=== PATIENT | female | born 1975 | race African-American/Black ===

== ENCOUNTER 2016-12-19 21:36 | Emergency (ER) | payer OTHER ==
[2015-03-03 09:13] VITALS: BMI 26.5
[~2016-12-19 21:36] MED LIST: ELAVIL75 MG PO; MOBIC7.5 MG PO; PEPCID20 MG PO
== END 2016-12-19 22:08 | disposition home or self-care (01) ==
LOC: D.ER 21:36
DX: M54.5 Low back pain (principal); F41.9 Anxiety disorder, unspecified; F32.9 Major depressive disorder, single episode, unspecified

== ENCOUNTER 2017-04-17 11:47 | Emergency (ER) | payer OTHER ==
[2015-03-03 09:13] VITALS: BMI 26.5
[2017-04-17 12:36] LABS: BASOPHILS 0.4 % (0-2); EOSINOPHILS 3.1 % (0-7); HEMATOCRIT 32.1 % (36.0-48.0); HEMOGLOBIN 10.7 g/dL (12-16); IMMATURE GRANULOCYTES 0.4 % (0-5); LYMPHOCYTES 38.2 % (15-50); MCH 23.8 pg (26.0-34.0); MCHC 33.3 g/dL (31.0-37.0); MCV 71.5 fL (80.0-100.0); MEAN PLATELET VOLUME 9.4 fL (7.4-10.4); MONOCYTES 5.8 % (2-11); NEUTROPHILS 52.1 % (40-80); PLATELET COUNT 295 10x3/uL (130-400); RBC 4.49 10x6/uL (4.00-5.40); RDW 18.9 % (11.5-14.5); WBC 7.7 10x3/uL (4.8-10.8)
[2017-04-17 13:04] LABS: ALBUMIN 3.1 g/dL (3.4-5.0); ALKALINE PHOSPHATASE 54 U/L (46-116); ALT (SGPT) 17 U/L (10-68); BILIRUBIN - TOTAL 0.26 mg/dL (0.2-1.3); CALC OSMOLALITY 275 mosm/kg (275-300); CALCIUM 8.9 mg/dL (8.5-10.1); CHLORIDE - SERUM 107 mmol/L (98-107); CREATININE - SERUM 0.8 mg/dL (0.6-1.3); GLUCOSE 100 mg/dL (74-106); POTASSIUM - SERUM 3.6 mmol/L (3.5-5.1); PROTEIN - SERUM 7.1 g/dL (6.4-8.2); SODIUM 140 mmol/L (136-145); UREA NITROGEN 5 mg/dL (7-18); eGFR NON AFRICAN AMERICAN 83 mL/min (90-120)
[2017-04-17 13:12] LABS: CKMB 0.1 U/L (0.0-3.6); CREATINE KINASE 62 UL (21-215)
[2017-04-17 13:15] LABS: TROPONIN-I < 0.017 ng/mL (0.000-0.060)
== END 2017-04-17 13:47 | disposition home or self-care (01) ==
LOC: D.ER 11:47
PROVIDERS: Emergency Medicine
DX: R07.9 Chest pain, unspecified (principal); K21.9 Gastro-esophageal reflux disease without esophagitis; K21.0 Gastro-esophageal reflux disease with esophagitis

== ENCOUNTER 2017-07-29 21:19 | Emergency (ER) | payer OTHER ==
[2015-03-03 09:13] VITALS: BMI 26.5
== END 2017-07-30 01:38 | disposition home or self-care (01) ==
LOC: D.ER 21:19
DX: R07.89 Other chest pain (principal); F17.200 Nicotine dependence, unspecified, uncomplicated; R00.0 Tachycardia, unspecified

== ENCOUNTER 2017-11-02 20:30 | Emergency (ER) | payer OTHER ==
[2015-03-03 09:13] VITALS: BMI 26.5
== END 2017-11-02 21:21 | disposition home or self-care (01) ==
LOC: D.ER 20:30
DX: G43.909 Migraine, unspecified, not intractable, without status migrainosus (principal)

== ENCOUNTER 2017-12-02 14:46 | Emergency (ER) | payer OTHER ==
[2015-03-03 09:13] VITALS: BMI 26.5
== END 2017-12-02 16:22 | disposition home or self-care (01) ==
LOC: D.ER 14:46
DX: K04.7 Periapical abscess without sinus (principal); K08.89 Other specified disorders of teeth and supporting structures

== ENCOUNTER 2018-01-06 15:18 | Emergency (ER) | payer OTHER ==
[2015-03-03 09:13] VITALS: BMI 26.5
[2018-01-06 16:17] LABS: BASOPHILS 0.2 % (0-2); EOSINOPHILS 4.5 % (0-7); HEMATOCRIT 33.8 % (36.0-48.0); HEMOGLOBIN 11.3 g/dL (12-16); IMMATURE GRANULOCYTES 0.2 % (0-5); LYMPHOCYTES 42.1 % (15-50); MCH 24.8 pg (26.0-34.0); MCHC 33.4 g/dL (31.0-37.0); MCV 74.3 fL (80.0-100.0); MONOCYTES 5.6 % (2-11); NEUTROPHILS 47.4 % (40-80); PLATELET COUNT 286 10x3/uL (130-400); RBC 4.55 10x6/uL (4.00-5.40); RDW 17.4 % (11.5-14.5); WBC 8.8 10x3/uL (4.8-10.8)
[2018-01-06 16:53] LABS: ALBUMIN 3.3 g/dL (3.4-5.0); ALKALINE PHOSPHATASE 63 U/L (46-116); ALT (SGPT) 15 U/L (10-68); BILIRUBIN - TOTAL 0.35 mg/dL (0.2-1.3); CALC OSMOLALITY 275 mosm/kg (275-300); CALCIUM 9.1 mg/dL (8.5-10.1); CARBON DIOXIDE 25.2 mmol/L (21.0-32.0); CHLORIDE - SERUM 104 mmol/L (98-107); CREATININE - SERUM 0.8 mg/dL (0.6-1.3); GLUCOSE 111 mg/dL (74-106); PROTEIN - SERUM 7.7 g/dL (6.4-8.2); SODIUM 139 mmol/L (136-145); UREA NITROGEN 3 mg/dL (7-18); eGFR NON AFRICAN AMERICAN 82 mL/min (90-120)
[2018-01-06 16:53] LABS: APPEARANCE CLEAR (CLEAR); BILIRUBIN NEGATIVE (NEGATIVE); COLOR YELLOW (YELLOW); GLUCOSE NEGATIVE (NEGATIVE); KETONE NEGATIVE (NEGATIVE); NITRITE NEGATIVE (NEGATIVE); PROTEIN NEGATIVE (NEGATIVE); UROBILINOGEN NORMAL (NORMAL)
[2018-01-06 16:55] LABS: BACTERIA MODERATE /hpf (NONE SEEN); RED CELLS - URINE 0-5 /hpf (0-5); WHITE CELLS - URINE 0-5 /hpf (0-5)
[2018-01-06 17:05] LABS: POTASSIUM - SERUM 2.5 mmol/L (3.5-5.1)
[2018-01-06 17:11] LABS: HCG SERUM NEGATIVE (NEGATIVE)
== END 2018-01-06 19:52 | disposition home or self-care (01) ==
LOC: D.ER 15:18
PROVIDERS: Emergency Medicine
DX: K59.00 Constipation, unspecified (principal); E87.6 Hypokalemia; N76.0 Acute vaginitis; B96.89 Other specified bacterial agents as the cause of diseases classified elsewhere

== ENCOUNTER 2018-02-02 08:36 | Observation (INO) | payer OTHER ==
[~2018-02-02] VITALS: Ht 175.3 cm; Wt 100.7 kg
--- NOTE | ~2018-02-02 | CN ---
PATIENT NAME:MARCO A GEORGE MEDICAL RECORD: [id number] : 71 LOCATION:[facility] D.2122 ADMIT DATE: 02/02/18 ACCOUNT: [id number] CONSULTING PHYSICIAN: LEATHA ANTOINE MD REFERRING PHYSICIAN: JEFFERY LORA MD DATE OF CONSULTATION: 02/03/2018 HISTORY OF PRESENT ILLNESS: A 42-year-old female with no known history of coronary artery disease, she has a strong family history of coronary artery disease, history of hypertension, migraine, has been having intermittent chest pain, both typical and atypical features. Extensive GI workup including gallbladder ultrasound, upper and lower endoscopy, no etiology so far. With strong family history this is somewhat concerning her. We are asked to see her concerning her cardiovascular status. PAST MEDICAL HISTORY: Includes history of migraines. ALLERGIES: None known. MEDICATIONS: Typically include Mobic 7.5 every day, diazepam 5 mg p.o. t.i.d., amitriptyline 75 q.h.s. SOCIAL HISTORY: Lives in [place], nonsmoker. No set exercise program. REVIEW OF SYSTEMS: The patient reports easy bruising but reports no swollen glands. The patient reports no fever, no night sweats, no significant weight gain, no significant weight loss. No significant exercise tolerance. The patient reports no dry eyes, no irritation, no vision change. Patient reports no difficulty hearing and no ear pain. Patient reports no frequent nose bleeds or nose and sinus problems. Patient reports on arm pain on exertion. No shortness of breath while lying down. No history of heart murmur. Patient reports no cough, no wheezing or coughing up blood. Patient reports no abdominal pain, no vomiting. Normal appetite. No diarrhea and not vomiting blood. No nausea and no constipation. Patient reports no incontinence. No difficulty urinating. No hematuria. No increased frequency. Patient reports no muscle aches. No weakness, no arthralgias, no back pain. No swelling of the extremities. Patient reports no abnormal mole, no jaundice, no rashes. Reports no loss of consciousness. No weakness and no numbness. No seizures, dizziness, or headaches. The patient reports no depression, no sleep disturbance, feeling safe in a relationship and no alcohol abuse. Patient reports on fatigue. Reports no runny nose or sinus pressure. No itching, no hives, and no frequent sneezing. PHYSICAL EXAMINATION: GENERAL: Pleasant female in no acute distress, alert and oriented. VITAL SIGNS: Blood pressure 122/56, pulse 90 and regular. HEENT: Normocephalic, atraumatic. NECK: No JVD or bruit. HEART: Regular. LUNGS: Chan clear. ABDOMEN: Soft, nontender. EXTREMITIES: Pulse 2+ with no edema. NEUROLOGIC: Grossly intact. DIAGNOSTIC DATA: ECG is without acute change. CONSULT REPORT [id number] MARCO A GEORGE IMPRESSION: Chest pain, hypokalemia. Historically given clinical situation, I suspect best be served by definitive diagnosis and we will schedule diagnostic angiography for that purpose. TRANSINT:[id number] Voice Confirmation ID: [id number] DOCUMENT ID: [id number] LEATHA ANTOINE MD at 1155 CC: [id number] DICTATION DATE: 02/03/18 0852 EDUCATION INSTRUCTOR: 02/03/18 1127 DIS IN 02/03/18 [id number] [place] [address]
--- NOTE | ~2018-02-02 | HEMODYNAMI ---
PATIENT:MARCO A GEORGE MEDICAL RECORD: [id number] : 71 [facility] [id number] ADMISSION DATE: 02/02/18 Generatedon:02/03/201814:31 Patient name: MARCO A GEORGE Patient #: [id number] SSN: DO B: 1975 Date of study: 02/03/2018 Page: Of Hemodynamic Procedure Report Patient Data Patient Demographics Procedure consent was obtained First Name: MARCO A Gender: Female Last Name: ARIEL : 1975 [facility] Initial: L Age: 42 year(s) Patient #: [id number] Race: Black Additional ID: [id number] Contact details [address]: [address] [place] [address] State: [place] City: [place] Zip code: [address] Admission Admission Data Admission Date: 02/02/2018 Admission Time: 14:22 Room #: D.2122 Lab Results Lab Result Date: 02/03/2018 Lab Result Time: 0:00 Biochemistry Name Units Result Min Max BUN mg/dl 5 -*(----)-- 7 18 Creatinine mg/dl 0.8 --(-*--)-- 0.6 1.3 CBC Name Units Result Min Max Hemoglobin g/dl 10.1 *-(----)-- 13.5 17.5 Procedure Procedure Types Cath Procedure Diagnostic Procedure [facility] w/Coronaries Sedation Charges Moderate Sedation up to 15 minutes Procedure Description Procedure Date Procedure Date: 02/03/2018 Procedure Start Time: 14:09 Procedure End Time: 14:28 Procedure Staff Name Function Benji Newsome MD Performing Physician Lydia Christina RT Monitor Marquise Urban RN Nurse Shannno Aldana RT Scrub Procedure Data Cath Procedure Fluoroscopy Diagnostic fluoroscopy Total fluoroscopy Time: 7.7 time: 7.7 min min Diagnostic fluoroscopy Total fluoroscopy dose: 714 dose: 714 mGy mGy Contrast Material Contrast Material Type Amount (ml) Isovue 300 63 Entry Location Entry Primary Successful Side Size Upsize Upsize Entry Closure Harrison ccessful Closure Location (Fr) 1 (Fr) 2 (Fr) Remarks Device Remarks Radial Right 6 Fr Mechanical artery Short Compression Estimated blood loss: 10 ml Diagnostic catheters Device Type Used For End Catheter Placement DIAGNOSTIC [place] 110cm 5 Procedure Fr catheter ([id number]) DIAGNOSTIC AR 1 MOD 5Fr Procedure catheter ([id number]) DIAGNOSTIC JL 3.5 5Fr Procedure catheter ([id number]) Procedure Complications No complications Procedure Medications Medication Administration Route Dosage Oxygen etCO2 Nasal cannula 2 l/min Heparin Flush Bag added to field 2 bags (1000units/500ml NS) 0.9% NaCl I.V. 100 ml/hr Radial Cocktail added to field 1 syringe (Verapomil 2mg/Nitro 400mcg/Heparin 1500units) Fentanyl I.V. 50 mcg Versed I.V. 1 mg Fentanyl I.V. 50 mcg Versed I.V. 1 mg Fentanyl I.V. 50 mcg Radial Cocktail I.A. 1 syringe (Verapomil 2mg/Nitro 400mcg/Heparin 1500units) Fentanyl I.V. 50 mcg Versed I.V. 1 mg Versed I.V. 1 mg Hemodynamics Rest HGB: 10.1 (g/dl) Heart Rate: 89 (bpm) Pressure Samples Time Site Value (mmHg) Purpose Heart Use Rate(bpm) 14:23 LV 120/3,20 Snapshot 89 14:24 AO 116/77(94) Pullback 88 14:24 LV 132/10,35 Pullback 88 Gradients Valve Time Site 1 Site 2 Mean SEP/DFP Peak To Heart Use (mmHg) (sec/min) Peak Rate (mmHg) (bpm) Aortic 14:24 LV AO 11 23 16 88 132/10,35 116/77(94) Calculations Valve P-P Mean Valve Index Valve Source Name Gradient Area Flow (cm2) Aortic 16 11 16 11 Snapshots Pre Cath Intra NCS Post Cath Vital Signs Time Heart Resp SPO2 etCO2 NIBP Rhythm Pain Sedation Rate (ipm) (%) (mmHg) (mmHg) Status Level (bpm) 13:58:31 96 16 100 18.8 112/81(97) NSR 0 (11) 10(A) , No pain 14:02:39 86 16 96 27.9 117/76(92) NSR 0 (11) 10(A) , No pain 14:06:49 86 17 96 31.6 122/73(94) NSR 0 (11) 9(A) , No pain 14:10:57 89 17 99 37.7 123/78(98) NSR 0 (11) 9(A) , No pain 14:15:07 92 17 97 36.2 114/67(93) NSR 0 (11) 9(A) , No pain 14:19:15 88 17 94 35.4 115/71(93) NSR 0 (11) 9(A) , No pain 14:23:25 87 16 94 26.3 120/72(83) NSR 0 (11) 9(A) , No pain 14:27:39 89 16 96 33.1 106/68(91) NSR 0 (11) 9(A) , No pain Medications Time Medication Route Dose Verified Delivered Reason Notes Effectiveness by by 13:56:59 Oxygen etCO2 2 l/min Benji Camarillo Per Nasal [facility] Mehran Urban RN physician cannula 13:57:06 Heparin Flush added 2 bags Benji Camarillo used for Bag to [facility] Mehran Urban watershed program manager (1000units/500ml field TEJEDA NS) 13:57:16 0.9% NaCl I.V. 100 Benji Camarillo Per ml/hr [facility] Mehran Urban RN physician 13:57:25 Radial Cocktail added 1 Benji Camarillo used for (Verapomil to syringe [facility] Mehran Urban watershed program manager 2mg/Nitro field TEJEDA 400mcg/Heparin 1500units) 14:03:40 Fentanyl I.V. 50 mcg Benji Camarillo for sedation [facility] Mehran Urban RN, MD 14:03:47 Versed I.V. 1 mg Benji Camarillo for sedation [facility] Mehran Urban RN, MD 14:06:18 Fentanyl I.V. 50 mcg Benji Maciasy for sedation [facility] Mehran Urban RN, MD 14:06:22 Versed I.V. 1 mg Benji Camarillo for sedation [facility] Mehran Urban RN, MD 14:09:19 Fentanyl I.V. 50 mcg Benji Maciasy for sedation [facility] Mehran Urban RN, MD 14:10:16 Radial Cocktail I.A. 1 Benji Leblanc for (Verapomil syringe [facility] vasodilation 2mg/Robin TEJEDA MD 400mcg/Heparin 1500units) 14:11:36 Fentanyl I.V. 50 mcg Benji Maciasy for sedation [facility] Mehran Urban RN, MD 14:15:00 Versed I.V. 1 mg Benji Camarillo for sedation [facility] Mehran Urban RN, MD 14:18:22 Versed I.V. 1 mg Benji Camarillo for sedation [facility] Mehran Urban RN, MD Procedure Log Time Note 13:31:25 Shannon Aldana RT(R) sent for patient. Start room use. 13:45:39 Lab Result : BUN 5 mg/dl 13:45:39 Lab Result : Hemoglobin 10.1 g/dl 13:45:39 Lab Result : Creatinine 0.8 mg/dl 13:46:21 Diagnostic Cath status Elective 13:46:26 Time tracking: Regular hours 13:46:33 Plan of Care:Hemodynamics will remain stable., Cardiac rhythm will remain stable., Comfort level will be maintained., Respiratory function will remain adequate., Patient/ family verbilizes understanding of procedure., Procedure tolerated without complication., Recovers from procedure without complications.. 13:50:32 Patient received from Med II to [facility] 2 Alert and oriented. Tansferred to table in Supine position. 13:50:33 Warm blankets applied, and lindy hugger turned on for patient comfort. 13:50:40 Correct patient and procedure confirmed by team. 13:50:49 Signed procedure consent form obtained from patient. 13:51:14 H&P Date Dictated: 02/02/2018 Within 30 days and on chart., H&P Addendum completed by physician on day of procedure. (MUST COMPLETE FOR ALL OUTPATIENTS). 13:51:18 Pre-procedure instructions explained to patient. 13:51:22 Family in waiting room. 13:51:24 Patient NPO since Midnight. 13:52:12 Is the patient allergic to Iodine/contrast media? No. 13:52:16 Was the patient premedicated? Yes 13:56:59 Oxygen 2 l/min etCO2 Nasal cannula was administered by Marquise Urban RN; Per physician; 13:57:06 Heparin Flush Bag (1000units/500ml NS) 2 bags added to field was administered by Marquise Urban RN; used for procedure; 13:57:16 0.9% NaCl 100 ml/hr I.V. was administered by Marquise Urban RN; Per physician; 13:57:25 Radial Cocktail (Verapomil 2mg/Nitro 400mcg/Heparin 1500units) 1 syringe added to field was administered by Marquise Urban RN; used for procedure; 13:57:32 Vital chart was started 13:58:26 Baseline sample Acquired. 13:58:27 ECG and BP/O2 sat monitors applied to patient. 13:58:36 Rhythm: sinus rhythm 13:58:38 Full Disclosure recording started 13:58:42 Is patient on blood thinner?No 13:58:44 Patient diabetic? No. 13:58:46 Patient not . Patient has had tubal. 13:58:50 Previous problem with sedation/anesthesia? No ? 13:58:52 Snore? Yes 13:58:53 Sleep apnea? No 13:58:54 Deviated septum? No 13:58:54 Opens mouth fully? Yes 13:58:55 Sticks out tongue? Yes 13:58:59 Airway obstruction? No ? 13:59:02 Dentures? No ? 13:59:05 Pre procedure: right dorsailis pedis pulse 1+ Palpable, but thready & weak; easily obliterated 13:59:07 Modified Pepe's test Ulnar < 7 seconds 13:59:09 Patient pain scale 0/10 ?. 13:59:15 IV patent on arrival in left hand with 0.9% NaCl at O. 13:59:17 Lab results completed and on chart. 13:59:22 Right Radial & Right Groin area was prepped with chlora-prep and draped in sterile fashion 13:59:23 Alarms reviewed by R. N. 13:59:23 Sharps counted by scrub and verified by R.N. 14:03:32 Physician paged 14:03:32 Physician arrived 14:03:33 --------ALL STOP TIME OUT------ 14:03:34 Final Timeout: patient, procedure, and site verified with staff and physician. All members of the team are in agreement. 14:03:37 Right Radial & Right Groin site verified by team. 14:03:40 Fentanyl 50 mcg I.V. was administered by Marquise Urban RN; for sedation; 14:03:41 Physical assessment completed. ASA score P 2 - A patient with mild systemic disease as per Benji Newsome MD. 14:03:45 Sedation plan: IV Moderate Sedation Medication:Versed, Fentanyl 14:03:47 Versed 1 mg I.V. was administered by Marquise Urban RN; for sedation; 14:03:52 Use device set Femoral Dx 14:04:44 ACIST Syringe (33576) opened to sterile field. 14:04:45 Bag Decanter () opened to sterile field. 14:04:47 Medline Cath Pack ([id number]) opened to sterile field. 14:04:50 DIAGNOSTIC WIRE .035 260cm J wire (129770) opened to sterile field. 14:04:51 ACIST Hand Control (32495) opened to sterile field. 14:04:52 ACIST Manifold (70754) opened to sterile field. 14:05:09 SHEATH 6Fr Prelude Radial ([id number]) opened to sterile field. 14:06:06 Zero performed for pressure channel P1 14:06:18 Fentanyl 50 mcg I.V. was administered by Marquise Urban RN; for sedation; 14:06:22 Versed 1 mg I.V. was administered by Marquise Urban RN; for sedation; 14:09:16 Procedure started. 14:09:19 Fentanyl 50 mcg I.V. was administered by Marquise Urban RN; for sedation; 14:09:28 Local anesthetic to right radial artery with Lidocaine 2% by Benji Newsome MD.INITIAL ACCESS ONLY 14:10:16 Radial Cocktail (Verapomil 2mg/Nitro 400mcg/Heparin 1500units) 1 syringe I.A. was administered by Benji Newsome MD; for vasodilation; 14:10:50 A 6 Fr Short sheath was inserted into the Right Radial artery 14:11:36 Fentanyl 50 mcg I.V. was administered by Marquise Urban RN; for sedation; 14:11:57 A DIAGNOSTIC [place] 110cm 5 Fr catheter (397406) was advanced over the wire and used for Procedure. 14:13:57 GLIDE WIRE ANGLE 260cm ([id number]) opened to sterile field. 14:14:13 TORQUE DEVICE PLASTIC .038 ( TD01) opened to sterile field. 14:14:14 MAGIC TORQUE 180cm 0.035 wire ([id number]) opened to sterile field. 14:15:00 Versed 1 mg I.V. was administered by Marquise Urban RN; for sedation; 14:18:18 unable to get access with tiger. cath exchanged for A R1 14:18:22 Versed 1 mg I.V. was administered by Marquise Urban RN; for sedation; 14:18:34 A DIAGNOSTIC AR 1 MOD 5Fr catheter (655266S) was advanced over the wire and used for Procedure. 14:19:11 RCA angiography performed. 14:22:04 A DIAGNOSTIC JL 3.5 5Fr catheter ([id number]) was advanced over the wire and used for Procedure. 14:23:12 cath removed unable to access lesion 14:23:13 GUIDE 6FR EBU 3.5 catheter ([id number]) opened to sterile field. 14:24:34 pressures recorded 14:25:34 LCA angiography performed. 14:25:40 Catheter removed. 14:25:57 TR BAND Large ([id number]) opened to sterile field. 14:26:25 Sheath removed intact; hemostasis achieved with Mechanical Compression to the Right Radial artery. 14:26:28 Procedure ended.(Physican Out) 14:26:43 Fluoroscopy time 07.70 minutes. 14:26:48 Flurop Dose total: 714 14:26:48 Fluoroscopy dose: 714 mGy 14:26:58 Contrast amount:Isovue 300 63ml. 14:27:00 Sharps counted by scrub and verified by R.N. 14:27:03 TR band inflated with 14cc of air. 14:27:13 Insertion/operative site no bleeding no hematoma. 14:27:14 Post Procedure Pulses reassessed and unchanged 14:27:18 Post-procedure physical assessment completed. ASA score P 2 - A patient with mild systemic disease as per Benji Newsome MD. 14:27:22 Post procedure rhythm: unchanged. 14:27:27 Estimated blood loss: 10 ml 14:27:33 Post procedure instruction explained to patient.Patient verbalizes understanding. 14:27:42 Procedure type changed to Cath procedure, Diagnostic procedure, LHC, LHC w/Coronaries, Sedation Charges, Moderate Sedation up to 15 minutes 14:27:44 Procedure and supply charges have been captured, reviewed, submitted and are correct. 14:28:12 Procedure Complication : No complications 14:28:14 Vital chart was stopped 14:28:15 See physician's report for complete and final results. 14:28:19 Report given to [facility]. 14:28:23 Patient transfered to [facility] with Bed. 14:28:26 Procedure ended. 14:28:26 Full Disclosure recording stopped 14:28:56 End room use (Document Last) Device Usage Item Name Manufacture Quantity Catalog Number Hospital Part Current M inimal Lot# / Charge Number Stock Stock Serial# Code ACIST Syringe Acist 1 68271 591475 828979 181737 2 0 (25489) Medical Systems [employer] Bag Decanter Microtek 1 029821 96885 137324 5 () [employer] Inc. Medline Cath Cardinal 1 [id number] 336811 68795 021292 5 [employer] ([id number]) DIAGNOSTIC WIRE St Vasyl 1 191811 644555 632482 737680 3 0 .035 260cm J wire (483240) ACIST Hand Acist 1 80859 781430 147717 882014 5 Control (54855) Medical Systems Inc ACIST Manifold Acist 1 27332 148847 270311 622318 5 (76896) Medical Systems Inc SHEATH 6Fr Merit 1 [id number] 148483 530681 664770 5 Prelude Radial Medical ([id number]) DIAGNOSTIC Terumo 1 405013 791444 019134 489182 5 [place] 110cm 5 Fr catheter (248905) GLIDE WIRE Terumo 1 [id number] 208294 335357 810216 5 ANGLE 260cm ([id number]) TORQUE DEVICE [place] 1 TD01 093140 130241 032477 5 PLASTIC .038 ( Scientific TD01) MAGIC TORQUE [place] 1 [id number] 965709 692513 591647 1 180cm 0.035 Scientific wire ([id number]) DIAGNOSTIC [place] 1 Cardinal 1 [id number] 215524 019397 962693 1 5 MOD 5Fr Health catheter (998264I) DIAGNOSTIC JL Cardinal 1 [id number] 767389 693140 069176 5 3.5 5Fr Health catheter (276770G) GUIDE 6FR EBU Medtronic 1 [id number] 856422 77243 754807 3 3.5 catheter ([id number]) TR BAND Large Terumo 1 [id number] 388395 389301 661685 4 0 ([id number]) Signature Audit Ethel Stage Time Signature Unsigned Intra-Procedure 02/03/2018 Lydia Christina 2:31:26 PM RT(R) Signatures Monitor : Lydia Christina Signature : RT Date : Time : [id number] [place] [address]
--- NOTE | ~2018-02-02 | OP ---
PATIENT NAME: MARCO A GEORGE MEDICAL RECORD: [id number] :71 LOCATION:D. D.2122 ADMISSION DATE:02/02/18 SURGEON: LEATHA ANTOINE MD DATE OF OPERATION: 02/03/2018 PROCEDURE: Left heart catheterization secondary right radial approach. CATHETERS: A [place] sheath, [place] catheter, AR catheter. FINDINGS: Left ventriculograpy not performed. LV catheterization shows a normal left ventricular end-diastolic pressure. No pressure gradient across the aortic valve. CORONARY ANATOMY: LEFT MAIN: Left main is free of disease. LAD: LAD is free of disease in the diagonal system. CIRCUMFLEX: Free of disease in the marginal system. RIGHT CORONARY ARTERY: Dominant artery, gives rise to PDA, free of disease. IMPRESSION: No gradient across the aortic valve. Normal LV pressures. Normal coronary anatomy. TRANSINT:[id number] Voice Confirmation ID: [id number] DOCUMENT ID: [id number] LEATHA ANTOINE MD at 1155 CC: [id number] DICTATION DATE: 02/03/18 1433 TUGGER OPERATOR: 02/03/18 1535 DIS IN 02/03/18 [facility] [address] [place] [address]
[2018-02-02 09:18] LABS: BASOPHILS 0.2 % (0-2); EOSINOPHILS 5.1 % (0-7); HEMATOCRIT 32.7 % (36.0-48.0); IMMATURE GRANULOCYTES 0.3 % (0-5); MCH 24.8 pg (26.0-34.0); MCHC 33.6 g/dL (31.0-37.0); MCV 73.8 fL (80.0-100.0); MEAN PLATELET VOLUME 9.6 fL (7.4-10.4); MONOCYTES 3.1 % (2-11); NEUTROPHILS 47.3 % (40-80); PLATELET COUNT 314 10x3/uL (130-400); RBC 4.43 10x6/uL (4.00-5.40); RDW 17.4 % (11.5-14.5)
[2018-02-02 09:43] LABS: ALBUMIN 3.2 g/dL (3.4-5.0); ALKALINE PHOSPHATASE 61 U/L (46-116); ALT (SGPT) 17 U/L (10-68); BILIRUBIN - TOTAL 0.27 mg/dL (0.2-1.3); CALC OSMOLALITY 274 mosm/kg (275-300); CALCIUM 8.5 mg/dL (8.5-10.1); CARBON DIOXIDE 25.4 mmol/L (21.0-32.0); CHLORIDE - SERUM 104 mmol/L (98-107); CKMB 0.3 U/L (0.0-3.6); CREATINE KINASE 133 UL (21-215); GLUCOSE 121 mg/dL (74-106); PROTEIN - SERUM 7.7 g/dL (6.4-8.2); SODIUM 138 mmol/L (136-145); UREA NITROGEN 6 mg/dL (7-18); eGFR NON AFRICAN AMERICAN 64 mL/min (90-120)
[2018-02-02 09:44] LABS: TROPONIN-I < 0.017 ng/mL (0.000-0.060)
[2018-02-02 09:46] LABS: POTASSIUM - SERUM 2.7 mmol/L (3.5-5.1)
[2018-02-02 10:42] LABS: APPEARANCE HAZY (CLEAR); BILIRUBIN NEGATIVE (NEGATIVE); COLOR DK YELLOW (YELLOW); GLUCOSE NEGATIVE (NEGATIVE); KETONE NEGATIVE (NEGATIVE); NITRITE NEGATIVE (NEGATIVE); PROTEIN 1+ mg/dL (NEGATIVE); UROBILINOGEN NORMAL (NORMAL)
[2018-02-02 10:43] LABS: BACTERIA MODERATE /hpf (NONE SEEN); MUCUS <1+ /lpf (NONE SEEN); RED CELLS - URINE 0-5 /hpf (0-5)
[2018-02-02 11:18] LABS: AMYLASE - SERUM 51 U/L (25-115); LIPASE 117 U/L (73-393)
[2018-02-02 16:06] LABS: CKMB 0.2 U/L (0.0-3.6); CREATINE KINASE 124 UL (21-215)
[2018-02-02 16:07] LABS: TROPONIN-I < 0.017 ng/mL (0.000-0.060)
[2018-02-02] MEDS ORDERED: ZOLOFT100 MG PO (17:04)
[2018-02-02 17:06] VITALS: BP 125/79; BMI 35.8
[2018-02-02] MEDS ORDERED: VALIUM5 MG PO (17:06)
[2018-02-02 20:00] VITALS: BP 110/80
[2018-02-02 23:05] LABS: CKMB 0.2 U/L (0.0-3.6); CREATINE KINASE 142 UL (21-215); TROPONIN-I < 0.017 ng/mL (0.000-0.060)
[2018-02-03] VITALS: BP 96/48
[2018-02-03 03:59] LABS: BASOPHILS 0.2 % (0-2); EOSINOPHILS 5.4 % (0-7); HEMATOCRIT 30.6 % (36.0-48.0); HEMOGLOBIN 10.1 g/dL (12-16); IMMATURE GRANULOCYTES 0.4 % (0-5); LYMPHOCYTES 43.8 % (15-50); MCH 24.6 pg (26.0-34.0); MCV 74.5 fL (80.0-100.0); MEAN PLATELET VOLUME 9.7 fL (7.4-10.4); MONOCYTES 6.1 % (2-11); NEUTROPHILS 44.1 % (40-80); PLATELET COUNT 275 10x3/uL (130-400); RBC 4.11 10x6/uL (4.00-5.40); RDW 17.3 % (11.5-14.5); WBC 8.2 10x3/uL (4.8-10.8)
[2018-02-03 04:00] VITALS: BP 100/50
[2018-02-03 04:30] LABS: CALC OSMOLALITY 274 mosm/kg (275-300); CALCIUM 8.2 mg/dL (8.5-10.1); CARBON DIOXIDE 26.1 mmol/L (21.0-32.0); CHLORIDE - SERUM 106 mmol/L (98-107); CKMB 0.2 U/L (0.0-3.6); CREATINE KINASE 120 UL (21-215); CREATININE - SERUM 0.8 mg/dL (0.6-1.3); GLUCOSE 95 mg/dL (74-106); MAGNESIUM - SERUM 1.9 mg/dL (1.8-2.4); POTASSIUM - SERUM 3.1 mmol/L (3.5-5.1); SODIUM 139 mmol/L (136-145); UREA NITROGEN 5 mg/dL (7-18); eGFR NON AFRICAN AMERICAN 82 mL/min (90-120)
[2018-02-03 04:32] LABS: TROPONIN-I < 0.017 ng/mL (0.000-0.060)
[2018-02-03 07:50] VITALS: BP 122/56
[2018-02-03 10:58] VITALS: BP 128/68
[2018-02-03 12:49] VITALS: Ht 175.3 cm; Wt 100.7 kg
[2018-02-03 15:11] VITALS: BP 112/80
== END 2018-02-03 18:57 | disposition home or self-care (01) ==
LOC: D.ER 08:36 → D.M2 14:22 → D.EDHOLD 14:22 → OBSVTIME 14:23 → D.M2 14:59
PROVIDERS: Family Medicine
DX: R07.89 Other chest pain (principal); E87.6 Hypokalemia; I10 Essential (primary) hypertension; F32.9 Major depressive disorder, single episode, unspecified; G47.00 Insomnia, unspecified; R73.9 Hyperglycemia, unspecified; K21.9 Gastro-esophageal reflux disease without esophagitis; R31.9 Hematuria, unspecified

== ENCOUNTER 2018-03-05 23:18 | Emergency (ER) | payer OTHER ==
[2018-02-03 12:49] VITALS: BMI 32.8
[~2018-03-05 23:18] MED LIST changes: +VALIUM5 MG PO; +ZOLOFT100 MG PO
== END 2018-03-06 00:01 | disposition home or self-care (01) ==
LOC: D.ER 23:18
DX: K08.89 Other specified disorders of teeth and supporting structures (principal); K02.9 Dental caries, unspecified

== ENCOUNTER 2018-03-30 11:52 | Emergency (ER) | payer OTHER ==
[2018-02-03 12:49] VITALS: BMI 32.8
== END 2018-03-30 12:55 | disposition home or self-care (01) ==
LOC: D.ER 11:52
DX: K02.9 Dental caries, unspecified (principal); K08.89 Other specified disorders of teeth and supporting structures

== ENCOUNTER 2018-05-15 02:44 | Emergency (ER) | payer OTHER ==
[~2018-05-15] VITALS: Ht 175.3 cm; Wt 112.0 kg
[2018-05-15 02:49] VITALS: Ht 175.3 cm; Wt 112.0 kg
[2018-05-15] MEDS ORDERED: ZOLOFT100 MG (02:50)
[2018-05-15] MEDS ORDERED: DICLOFENAC SODI50 MG PO (03:06)
[2018-05-15 03:53] VITALS: BP 130/87
== END 2018-05-15 03:55 | disposition home or self-care (01) ==
LOC: D.ER 02:44
DX: M25.561 Pain in right knee (principal)

== ENCOUNTER 2018-06-11 14:45 | Emergency (ER) | payer OTHER ==
[~2018-06-11] VITALS: Ht 175.3 cm; Wt 106.8 kg
[~2018-06-11 14:45] MED LIST changes: +DICLOFENAC SODI50 MG PO; +ZOLOFT100 MG
[2018-06-11 15:00] VITALS: Ht 175.3 cm; Wt 106.8 kg
[2018-06-11 17:57] LABS: APPEARANCE HAZY (CLEAR); SPECIFIC GRAVITY 1.015 (1.005-1.020)
[2018-06-11 17:58] LABS: COLOR DK YELLOW (YELLOW)
[2018-06-11 17:59] LABS: BACTERIA MODERATE /hpf (NONE SEEN); EPITHELIAL CELLS 0-5 /hpf (0-5); RED CELLS - URINE 0-5 /hpf (0-5); WHITE CELLS - URINE 0-5 /hpf (0-5)
[2018-06-11] MEDS ORDERED: DIFLUCAN150 MG PO (19:31)
[2018-06-11] MEDS ORDERED: HYDROXYZINE HCL50 MG PO (19:31)
[2018-06-11 19:51] VITALS: BP 120/71
== END 2018-06-11 19:51 | disposition home or self-care (01) ==
LOC: D.ER 14:45
PROVIDERS: Family Medicine
DX: N76.0 Acute vaginitis (principal); R11.0 Nausea

== ENCOUNTER 2018-08-31 19:02 | Emergency (ER) | payer OTHER ==
[~2018-08-31] VITALS: Ht 175.3 cm; Wt 106.6 kg
[~2018-08-31 19:02] MED LIST changes: +DIFLUCAN150 MG PO; +HYDROXYZINE HCL50 MG PO
[2018-08-31 19:16] VITALS: Ht 175.3 cm; Wt 106.6 kg
[2018-08-31] MEDS ORDERED: BACLOFEN20 M1 PO (21:06)
[2018-08-31] MEDS ORDERED: SUMATRIPTAN SUC25 MG PO (21:06)
[2018-08-31] MEDS ORDERED: PREDNISONE20 MG PO (21:06)
[2018-08-31 21:42] VITALS: BP 132/93
== END 2018-08-31 21:43 | disposition home or self-care (01) ==
LOC: D.ER 19:02
DX: M25.511 Pain in right shoulder (principal); G43.909 Migraine, unspecified, not intractable, without status migrainosus

== ENCOUNTER 2018-10-25 17:38 | Emergency (ER) | payer OTHER ==
[~2018-10-25] VITALS: Ht 175.3 cm; Wt 72.6 kg
[~2018-10-25 17:38] MED LIST changes: +BACLOFEN20 M1 PO; +PREDNISONE20 MG PO; +SUMATRIPTAN SUC25 MG PO
[2018-10-25 17:44] VITALS: Ht 175.3 cm; Wt 72.6 kg
[2018-10-25] MEDS ORDERED: VOLTAREN75 MG PO (20:05)
[2018-10-25 20:32] VITALS: BP 131/77
[2018-10-26] MEDS ORDERED: COMPAZINE5 MG PO (17:17)
[2018-10-26] MEDS ORDERED: PROTONIX40 MG PO (17:17)
== END 2018-10-25 20:32 | disposition home or self-care (01) ==
LOC: D.ER 17:38
DX: M25.561 Pain in right knee (principal); M76.9 Unspecified enthesopathy, lower limb, excluding foot

== ENCOUNTER 2018-10-26 13:25 | Emergency (ER) | payer OTHER ==
[~2018-10-26] VITALS: Ht 175.3 cm; Wt 107.8 kg
[~2018-10-26 13:25] MED LIST changes: +VOLTAREN75 MG PO
[2018-10-26 13:47] VITALS: Ht 175.3 cm; Wt 107.8 kg
[2018-10-26 15:09] LABS: BASOPHILS 0.3 % (0-2); EOSINOPHILS 3.2 % (0-7); HEMATOCRIT 29.3 % (36.0-48.0); HEMOGLOBIN 9.3 g/dL (12-16); IMMATURE GRANULOCYTES 0.3 % (0-5); LYMPHOCYTES 34.7 % (15-50); MCH 21.2 pg (26.0-34.0); MCHC 31.7 g/dL (31.0-37.0); MCV 66.7 fL (80.0-100.0); MEAN PLATELET VOLUME 9.5 fL (7.4-10.4); MONOCYTES 5.7 % (2-11); NEUTROPHILS 55.8 % (40-80); PLATELET COUNT 329 10x3/uL (130-400); RBC 4.39 10x6/uL (4.00-5.40); RDW 19.2 % (11.5-14.5); WBC 8.7 10x3/uL (4.8-10.8)
[2018-10-26 15:32] LABS: ALBUMIN 3.2 g/dL (3.4-5.0); BILIRUBIN - TOTAL 0.4 mg/dL (0.2-1.3); CARBON DIOXIDE 23.8 mmol/L (21.0-32.0); PROTEIN - SERUM 7.7 g/dL (6.4-8.2)
[2018-10-26 15:34] LABS: POTASSIUM - SERUM 2.8 mmol/L (3.5-5.1)
[2018-10-26 16:26] LABS: APPEARANCE CLOUDY (CLEAR); BACTERIA FEW /hpf (NONE SEEN); BILIRUBIN NEGATIVE (NEGATIVE); COLOR YELLOW (YELLOW); EPITHELIAL CELLS 0-5 /hpf (0-5); GLUCOSE NEGATIVE (NEGATIVE); KETONE NEGATIVE (NEGATIVE); NITRITE NEGATIVE (NEGATIVE); PROTEIN TRACE mg/dL (NEGATIVE); RED CELLS - URINE >50 /hpf (0-5); SPECIFIC GRAVITY 1.015 (1.005-1.020); UROBILINOGEN NORMAL (NORMAL); WHITE CELLS - URINE 0-5 /hpf (0-5)
[2018-10-26] MEDS ORDERED: COMPAZINE5 MG PO (17:17)
[2018-10-26] MEDS ORDERED: PROTONIX40 MG PO (17:17)
[2018-10-26 17:33] VITALS: BP 115/78
== END 2018-10-26 17:33 | disposition home or self-care (01) ==
LOC: D.ER 13:25
PROVIDERS: Family Medicine
DX: A08.4 Viral intestinal infection, unspecified (principal); E87.6 Hypokalemia; R11.2 Nausea with vomiting, unspecified